=== PATIENT | male | born 1950 | race Caucasian/White ===

== ENCOUNTER 2016-10-27 13:38 | Outpatient (CLI) | payer MEDICARE ==
[2013-05-08 20:59] VITALS: BP 144/81
--- NOTE | 2016-10-27 16:19 | Diagnostic Imaging Report ---
[facility] [address] [facility].[address] [id number] Report Submission Date: Oct 27, 2016 2:37:32 PM CDT Patient Study Name: SNEHA DE LA O Date: Oct 27, 2016 1:45:50 PM CDT Modality Type: CR Gender: M Description: SPINE : 52 Institution: [facility] Physician: CORBIN BERNAL Examination: Plain film lumbar spine History: Back discomfort Findings: 3 views of the lumbar spine demonstrate normal height. No anterior compression. Disc space narrowing and anterior and lateral ossific spurring. Atherosclerotic disease involving the abdominal aorta. Impression: Degenerative changes. No compression deformity. Electronically signed on Oct 27, 2016 2:37:32 PM CDT by: Igor ALCARAZ
== END 2016-10-27 13:40 ==
LOC: RAD 13:38
PROVIDERS: ATTEND Physician Assistant
DX: M54.41 Lumbago with sciatica, right side (principal)
CPT/HCPCS: 72100

== ENCOUNTER 2016-12-28 13:24 | Outpatient (CLI) | payer MEDICARE ==
[2013-05-08 20:59] VITALS: BP 144/81
--- NOTE | 2016-12-28 14:23 | Diagnostic Imaging Report ---
CORBIN BERNAL [facility] [address] [facility].[address] [address] Report Submission Date: Dec 28, 2016 2:19:12 PM CDT Patient Study Name: SNEHA DE LA O Date: Dec 28, 2016 1:38:54 PM CDT Modality Type: US Gender: M Description: UNILAT LTD STDY EXT VEINS : 52 Institution: [facility] Physician: CORBIN BERNAL Examination: Ultrasound vein History: Arm swelling Findings: Sonographic evaluation of the right upper extremity venous system. Luminal filling defect identified within the proximal to mid brachial vein. No compressibility. No flow centrally. Remainder of the upper extremity venous structures demonstrate normal compressibility. No other luminal filling defect. Normal waveforms and response to respiration. Cephalic vein not visualized. Impression: Luminal filling defect/thrombus identified within the mid to proximal brachial vein. Electronically signed on Dec 28, 2016 2:19:12 PM CDT by: Igor ALCARAZ
== END 2016-12-28 13:25 ==
LOC: RAD 13:24
PROVIDERS: ATTEND Physician Assistant
DX: M79.89 Other specified soft tissue disorders (principal)
CPT/HCPCS: 93971

== ENCOUNTER 2018-07-29 10:50 | Emergency (ER) | payer MEDICARE ==
[2018-07-29 10:58] VITALS: BP 137/69
--- NOTE | 2018-07-29 11:13 | ED Physician Documentation ---
General Adult - HISTORIAN Historian: patient - HPI Stated Complaint: kicked by horse on right side of head Chief Complaint: Scalp Injury (Head Laceration) Additional Information: Patient is a 67-year-old male that states that he was kicked in the head by a horse (he states that the horse did not fully impact his head but "nicked his scalp with shoe". He denies any LOC- no concussion- no memory loss. Patient states "he just knicked me". 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) Timing: still present Severity: mild Modifying Factors: Kicked by horse Location: right scalp Further Comments: no - ROS CONST: no problems EYES/ENT: none CVS/RESP: none GI/: none MS/SKIN/LYMPH: none NEURO/PSYCH: denies: headache, dizziness, tingling, numbness, difficulty with speech - PAST HX Past History: other (depression and joint pain) Other History: none Surgeries/Procedures: other (knees, shoulder, back) Immunizations: tetanus (3 years), UTD Allergies/Adverse Reactions: Allergies Allergy/AdvReac Type Severity Reaction Status Date / Time Penicillins Allergy Verified 07/29/18 10:59 Home Medications: Ambulatory Orders Medication Instructions Recorded Clindamycin HCl 300 mg PO Q6H #40 capsule 07/29/18 - SOCIAL HX Smoking History: less than 1 pack/day Alcohol Use: none Drug Use: none - FAMILY HX Family History: No - VITAL SIGNS Vital Signs: Vital Signs Temp Pulse Resp BP Pulse Ox 96.8 F L 74 18 137/69 98 07/29/18 10:52 07/29/18 10:52 07/29/18 10:52 07/29/18 10:52 07/29/18 10:52 - REVIEWED ASSESSMENTS Nursing Assessment Reviewed: Yes Vitals Reviewed: Yes Procedures Wound Location: head Wound Length: 3 cm Wound's Depth, Shape: linear Wound Explored: no foreign body removed Irrigated w/ Saline (ccs): 50 Betadine Prep?: Yes Wound Debrided: minimal Wound Repaired With: ousmane (x3) Number of Sutures: 3 (Ousmane) Progress: Cleansed with NS & Betadine- [address] (pt tolerated well)- antibiotic ointment applied General Adult Physical Exam - PHYSICAL EXAM GENERAL APPEARANCE: mild distress EENT: eye inspection normal, ENT inspection normal, pharynx normal, MIRIAN, no nystagmus NECK: normal inspection, supple RESPIRATORY: breath sounds normal CVS: heart sounds normal, equal pulses ABDOMEN: soft, normal bowel sounds BACK: normal inspection SKIN: warm/dry, normal color, other (3 cm lac to scalp) EXTREMITIES: normal range of motion, no evidence of injury NEURO: oriented X3, CN's nml as tested, motor nml, sensation nml, mood/affect nml, cognition normal Discharge Clincal Impression: Laceration of scalp Prescriptions: Clindamycin HCl 300 mg PO Q6H #40 capsule Referrals: Naty Reyes MD [Primary Care Provider] - 2 Days Additional Instructions: Take Clindamycin 300mg by mouth every 6 hours until gone Follow up with PCP in 7-10 days to have ousmane removed Keep ousmane clean and dry Monitor for signs of infection; redness, swelling, or drainage Condition: Good Disposition: 01 HOME, SELF-CARE Decision to Admit: NO Decision Time: 11:18
== END 2018-07-29 11:20 | disposition home or self-care (01) ==
LOC: ED 10:50
DX: S01.01XA Laceration without foreign body of scalp, initial encounter (principal); W55.12XA Struck by horse, initial encounter; Y93.9 Activity, unspecified; Y92.9 Unspecified place or not applicable
CPT/HCPCS: 12002; 99282; 99283

== ENCOUNTER 2019-02-13 14:31 | Outpatient (CLI) | payer MEDICARE | END 2019-02-13 14:36 | LOC: LABRHC 14:31 | PROVIDERS: ATTEND Family Medicine | DX: L02.212 Cutaneous abscess of back [any part, except buttock and flank] (principal) | CPT/HCPCS: 87070 ==